=== PATIENT | female | born 1960 | race Two or more races ===

== ENCOUNTER 2017-09-02 17:42 | Inpatient (IN) | payer OTHER ==
[~2017-09-02] VITALS: Ht 149.9 cm; Wt 51.7 kg
[~2017-09-02 17:42] MED LIST: MEDROL4 MG PO; MEDROLPACK PO; MUCINEX1200 MG/BO PO; PROVENTIL HFA6.7 GM IH; TESSALON200 MG PO; TUSSI PRES-B L120 M1 PO; ZITHROMAX500 MG PO
[2017-09-02] MEDS ORDERED: SINGULAIR 10MG10 MG (18:01)
[2017-09-02] MEDS ORDERED: FOSAMAX70 MG (18:02)
[2017-09-02] MEDS ORDERED: CLOTRIMAZOLE-BE15 GM (18:03)
[2017-09-06] MEDS ORDERED: MEDROLPACK PO (12:14)
[2017-09-06] MEDS ORDERED: AZITHROMYCIN250 MG PO (12:14)
== END 2017-09-06 16:00 | disposition home or self-care (01) | DRG 202 ==
LOC: ER 17:42 → SEC-K 09-03 08:45 → MEDI 09-03 08:45 → SEC-K 09-03 10:21 → MEDI 09-03 11:17
PROC: 3E0F7GC Introduction of Other Therapeutic Substance into Respiratory Tract, Via Natural or Artificial Opening (ICD-10-PCS; principal; 2017-09-03)
DX: J45.52 Severe persistent asthma with status asthmaticus (principal); J44.1 Chronic obstructive pulmonary disease with (acute) exacerbation; J44.0 Chronic obstructive pulmonary disease with (acute) lower respiratory infection; J20.9 Acute bronchitis, unspecified

== ENCOUNTER → 2018-09-30 | Outpatient (CLI) | payer OTHER ==
[~2018-09-30] VITALS: Ht 149.9 cm; Wt 56.7 kg
[~2018-09-30] MED LIST changes: +ALBUTEROL0.63 MG/3 IN; +AZITHROMYCIN250 MG PO; +CLOTRIMAZOLE-BE15 GM; +DULERA 100 MCG/13 GM IH; +FOSAMAX70 MG; +PREDNISONE; +SINGULAIR 10MG10 MG; +SINGULAIR10 MG PO
== END | disposition home or self-care (01) ==
LOC: EKG 08:00 → SURH 10-02 05:53 → EDSTATUS 10-02 06:11 → SURH 10-02 15:20
DX: Z01.810 Encounter for preprocedural cardiovascular examination (principal); D12.8 Benign neoplasm of rectum; D37.5 Neoplasm of uncertain behavior of rectum; R19.4 Change in bowel habit; R19.5 Other fecal abnormalities

== ENCOUNTER 2019-03-16 14:10 | Emergency (ER) | payer OTHER ==
[~2019-03-16] VITALS: Ht 149.9 cm; Wt 53.1 kg
== END 2019-03-16 20:54 | disposition home or self-care (01) ==
LOC: ER 14:10
DX: J45.998 Other asthma (principal)

== ENCOUNTER 2020-02-03 12:17 | Emergency (ER) | payer OTHER ==
[~2020-02-03] VITALS: Ht 149.9 cm; Wt 54.9 kg
[2020-02-03] MEDS ORDERED: SYMBYAX 12-501 EACH (12:48)
[2020-02-03] MEDS ORDERED: TESSALON PERLE100 M1 PO (15:59)
[2020-02-03] MEDS ORDERED: MEDROLPACK PO (15:59)
== END 2020-02-03 16:07 | disposition home or self-care (01) ==
LOC: ER 12:17
DX: B34.9 Viral infection, unspecified (principal); Z03.818 Encounter for observation for suspected exposure to other biological agents ruled out; R05 Cough; R09.81 Nasal congestion

== ENCOUNTER 2020-07-05 09:50 | Day surgery (SDC) | payer OTHER ==
[~2020-07-05 09:50] MED LIST changes: +SYMBYAX 12-501 EACH; +TESSALON PERLE100 M1 PO
== END 2020-07-05 15:30 | disposition home or self-care (01) ==
LOC: AMB-ENDOS 09:50
PROVIDERS: ATTEND Surgery
DX: K62.1 Rectal polyp (principal); Z20.822 Contact with and (suspected) exposure to COVID-19

== ENCOUNTER 2020-08-29 05:17 | Day surgery (SDC) | payer OTHER ==
[~2020-08-29 05:17] MED LIST changes: +ACID REDUCER20 M1 PO; +BUDESONIDE0.25 MG/2; +PEPCID AC10 MG PO; +RAYOS5 MG PO; +RELAFEN DS1000 MG PO; +SYMBICORT 16010.2 GM IH; +ZYRTEC10 MG PO
[2020-08-29] MEDS ORDERED: PERCOCET 5-3251 EACH PO (09:06)
[2020-08-29] MEDS ORDERED: RECTICARE30 GM TOP (09:07)
[2020-08-29] MEDS ORDERED: DERMOPLAST FIRS78 GM TOP (09:08)
== END 2020-08-29 18:35 | disposition home or self-care (01) ==
LOC: CIR.AMB 05:17
PROVIDERS: ATTEND Surgery
DX: D12.8 Benign neoplasm of rectum (principal); Z20.822 Contact with and (suspected) exposure to COVID-19

== ENCOUNTER 2021-07-18 18:46 | Emergency (ER) | payer OTHER ==
[~2021-07-18] VITALS: Ht 149.9 cm; Wt 56.7 kg
[~2021-07-18 18:46] MED LIST changes: +DERMOPLAST FIRS78 GM TOP; +PERCOCET 5-3251 EACH PO; +RECTICARE30 GM TOP
== END 2021-07-18 22:48 | disposition home or self-care (01) ==
LOC: ER 18:46
DX: J45.909 Unspecified asthma, uncomplicated (principal); Z88.8 Allergy status to other drugs, medicaments and biological substances

== ENCOUNTER 2021-12-01 14:32 | Outpatient (CLI) | payer OTHER | END 2021-12-01 14:34 | disposition home or self-care (01) | LOC: RAD 14:32 | PROVIDERS: ATTEND Internal Medicine Pulmonary Disease | DX: J44.1 Chronic obstructive pulmonary disease with (acute) exacerbation (principal); J44.9 Chronic obstructive pulmonary disease, unspecified; S20.20XA Contusion of thorax, unspecified, initial encounter; S22.39XB Fracture of one rib, unspecified side, initial encounter for open fracture ==

== ENCOUNTER 2022-12-09 20:19 | Emergency (ER) | payer OTHER ==
[~2022-12-09] VITALS: Ht 165.1 cm; Wt 54.4 kg
== END 2022-12-09 23:24 | disposition home or self-care (01) ==
LOC: ER 20:19
PROVIDERS: General Practice
DX: U07.1 COVID-19 (principal)
CPT/HCPCS: 36415; 71250; 94640; 96365; 99284; J2930; J3490

== ENCOUNTER 2023-02-02 14:33 | Emergency (ER) | payer OTHER ==
[~2023-02-02] VITALS: Ht 149.9 cm; Wt 55.8 kg
[2023-02-02 18:56] LABS: ABG PH 7.427 (7.35-7.45); ABG PO2 76.9 mmHg (80-100); ABG pCO2 36.2 mmHg (35-45); BASE EXCESS -0.6 mmol/l; BICARBONATE 23.3 mmol/l (23-25); SaO2 95.5 %; Tco2 24.4 mmol/l
[2023-02-02 19:27] LABS: HEMOGLOBIN 13.1 g/dL (12.0-15.00); MEAN CELL VOLUME 77.7 fL (80.00-100.00); MEAN CORPUSCULAR HEMOGLOBIN 26.1 pg (27.00-32.0); MEAN CORPUSCULAR HGB CONC 33.6 g/dl (32.0-36.0); PLATELET COUNT 246 K/uL (150-450); RED BLOOD COUNT 5.01 M/uL (4.00-6.00); RED CELL DISTRIBUTION WIDTH 15.2 % (11.5-14.5)
[2023-02-02 20:38] LABS: allen test SATISFACTORY; o2 21 %; puncture site RADIAL RIGHT
[2023-02-02 21:31] LABS: CALCIUM 9.2 mg/dL (8.5-10.1); CREATININE SERUM 0.61 mg/dL (0.55-1.02); GFR 99.71; POTASSIUM 3.56 mEq/L (3.5-5.1)
== END 2023-02-02 22:07 | disposition home or self-care (01) ==
LOC: ER 14:33
PROVIDERS: General Practice
DX: J45.901 Unspecified asthma with (acute) exacerbation (principal); Z88.8 Allergy status to other drugs, medicaments and biological substances
CPT/HCPCS: 36415; 71045; 82803; 94640; 96365; 99283; J2930; J3475